=== PATIENT | female | born 1985 | race Caucasian/White ===

== ENCOUNTER 2019-09-04 16:24 | Emergency (ER) | payer MEDICAID ==
[~2019-09-04] VITALS: Ht 152.4 cm; Wt 107.0 kg
[2019-09-04 16:34] VITALS: Ht 152.4 cm; Wt 107.0 kg
[2019-09-04 19:17] VITALS: BP 137/84
== END 2019-09-04 19:17 | disposition home or self-care (01) ==
LOC: ED 16:24
DX: M79.651 Pain in right thigh (principal); R03.0 Elevated blood-pressure reading, without diagnosis of hypertension